=== PATIENT | male | born 1980 | race African-American/Black ===

== ENCOUNTER 2016-04-13 23:41 | Emergency (ER) | payer OTHER ==
[~2016-04-13] VITALS: Ht 170.2 cm; Wt 99.2 kg
[~2016-04-13 23:41] MED LIST: BACLOFEN20 MG PO; CELEBREX; CORTISONE INJECTION; CYMBALTA30 MG PO; ENDOCET 5-3251 EACH PO; FIORICET,ESG1 TABLET PO; FLEXERIL10 MG PO; GARAMYCIN5 M1 BOTH EYES; INDOCIN25 MG PO; MEDROL DOSEPAK4 MG PO; MOBIC15 MG PO; MOTRIN600 MG PO; MOTRIN800 MG PO; NAPROSYN500 MG PO; NAPROXEN500 MG PO; NEURONTIN300 MG PO; NEURONTIN600 MG PO; NEXIUM20 MG PO; PERCOCET 5/31 TABLET PO; PREDNISONE; ROBAXIN500 MG PO; SKELAXIN800 MG PO; TESSALON PERLE100 MG PO; TRAMADOL HCL50 MG PO; VALIUM; ZITHROMAX Z-PA250 MG PO
[2016-04-14] MEDS ORDERED: AUGMENTIN875 MG PO (00:04)
[2016-04-14] MEDS ORDERED: VALIUM5 MG PO (00:04)
[2016-04-14] MEDS ORDERED: PREDNISONE10 MG PO (00:04)
[2016-04-14 00:17] VITALS: BP 118/91
== END 2016-04-14 00:18 | disposition home or self-care (01) ==
LOC: EXP 23:41 → EME 23:41 → EXP 04-14 00:18
DX: S16.1XXA Strain of muscle, fascia and tendon at neck level, initial encounter (principal); M62.838 Other muscle spasm; X58.XXXA Exposure to other specified factors, initial encounter; M25.511 Pain in right shoulder; G89.29 Other chronic pain; Z79.891 Long term (current) use of opiate analgesic; F17.200 Nicotine dependence, unspecified, uncomplicated
CPT/HCPCS: 99281; 99284; J7512

== ENCOUNTER 2016-05-14 20:55 | Emergency (ER) | payer OTHER ==
[~2016-05-14] VITALS: Ht 170.2 cm; Wt 98.4 kg
[~2016-05-14 20:55] MED LIST changes: +AUGMENTIN875 MG PO; +PREDNISONE10 MG PO; +VALIUM5 MG PO
[2016-05-14] MEDS ORDERED: MOTRIN800 MG PO (21:53)
[2016-05-14] MEDS ORDERED: ULTRACET1 TABLET PO (21:53)
[2016-05-14 22:15] VITALS: BP 139/90
== END 2016-05-14 22:15 | disposition home or self-care (01) ==
LOC: EME 20:55
DX: S00.83XA Contusion of other part of head, initial encounter (principal); S70.02XA Contusion of left hip, initial encounter; V49.40XA Driver injured in collision with unspecified motor vehicles in traffic accident, initial encounter; Y92.410 Unspecified street and highway as the place of occurrence of the external cause; Z91.013 Allergy to seafood; F17.200 Nicotine dependence, unspecified, uncomplicated
CPT/HCPCS: 70150; 73502; 99281; 99283

== ENCOUNTER 2016-12-20 22:40 | Emergency (ER) | payer OTHER ==
[~2016-12-20 22:40] MED LIST changes: +ULTRACET1 TABLET PO
== END 2016-12-21 04:09 | disposition left against medical advice (07) ==
LOC: EME 22:40
DX: S05.92XA Unspecified injury of left eye and orbit, initial encounter (principal); V49.9XXA Car occupant (driver) (passenger) injured in unspecified traffic accident, initial encounter; Z53.21 Procedure and treatment not carried out due to patient leaving prior to being seen by health care provider

== ENCOUNTER 2017-03-13 22:27 | Emergency (ER) | payer OTHER ==
[~2017-03-13] VITALS: Ht 170.2 cm; Wt 98.5 kg
[2017-03-13 23:39] VITALS: BP 115/76
== END 2017-03-13 23:40 | disposition home or self-care (01) ==
LOC: EME 22:27 → RME 22:27
DX: S00.12XA Contusion of left eyelid and periocular area, initial encounter (principal); V49.9XXA Car occupant (driver) (passenger) injured in unspecified traffic accident, initial encounter; Z87.891 Personal history of nicotine dependence
CPT/HCPCS: 70150; 99281; 99284

== ENCOUNTER 2017-05-01 21:55 | Emergency (ER) | payer OTHER ==
[~2017-05-01] VITALS: Ht 172.7 cm; Wt 97.6 kg
[2017-05-01 22:36] LABS: HEMATOCRIT 40.8 % (38.0-50.0); HEMOGLOBIN 14.1 G/DL (12.5-16.6); MCH 29.3 PG (29.0-34.0); MCHC 34.6 G/DL (30.0-36.0); MCV 84.6 FL (86-99); PLATELET COUNT 326 K/uL (156-360); RBC DIS.WIDTH-CV 13.2 % (11.8-14.6); RBC DIS.WIDTH-SD 40.7 % (39-53); RED BLOOD COUNT 4.82 M/uL (4.00-5.50); WHITE BLOOD COUNT 8.6 K/uL (4.1-10.2)
[2017-05-01 22:45] LABS: CHLORIDE 106 mEq/L (99-109); POTASSIUM 3.6 mEq/L (3.7-5.4); SODIUM 138 mEq/L (136-147)
[2017-05-01 22:46] LABS: GLUCOSE 130 mg/dL (70-99)
[2017-05-01 22:50] LABS: CREATININE 1.2 mg/dL (0.6-1.3); GFR ESTIMATE (CALCULATED) > 59 mL/min/ (58.99-99999)
[2017-05-01 22:51] LABS: UREA NITROGEN (BUN) 10 mg/dL (9-23)
[2017-05-02] MEDS ORDERED: MAGNESIUM250 MG PO (00:36)
[2017-05-02] MEDS ORDERED: B-COMPLEX-VITA1 EACH PO (00:36)
[2017-05-02 00:45] VITALS: BP 120/72
== END 2017-05-02 00:46 | disposition home or self-care (01) ==
LOC: EXP 21:55 → EME 21:55 → EXP 05-02 00:46
DX: J98.01 Acute bronchospasm (principal); R55 Syncope and collapse; R00.2 Palpitations; R11.0 Nausea; Z87.891 Personal history of nicotine dependence
CPT/HCPCS: 71046; 80048; 85027; 93005; 94664; 99281; 99284; J7030

== ENCOUNTER 2017-07-14 17:23 | Emergency (ER) | payer OTHER ==
[~2017-07-14] VITALS: Ht 172.7 cm; Wt 95.0 kg
[~2017-07-14 17:23] MED LIST changes: +B-COMPLEX-VITA1 EACH PO; +MAGNESIUM250 MG PO
[2017-07-14 18:03] VITALS: BP 108/81
== END 2017-07-14 18:56 | disposition home or self-care (01) ==
LOC: EME 17:23
DX: S39.012A Strain of muscle, fascia and tendon of lower back, initial encounter (principal); S30.0XXA Contusion of lower back and pelvis, initial encounter; V43.52XA Car driver injured in collision with other type car in traffic accident, initial encounter; Y92.410 Unspecified street and highway as the place of occurrence of the external cause; I10 Essential (primary) hypertension; Z87.891 Personal history of nicotine dependence
CPT/HCPCS: 72100; 72220; 99281; 99284

== ENCOUNTER 2017-07-18 12:51 | Emergency (ER) | payer OTHER ==
[~2017-07-18] VITALS: Ht 172.7 cm; Wt 92.0 kg
[2017-07-18 14:17] LABS: HEMATOCRIT 42.5 % (38.0-50.0); HEMOGLOBIN 14.7 G/DL (12.5-16.6); MCH 29.6 PG (29.0-34.0); MCHC 34.6 G/DL (30.0-36.0); MCV 85.7 FL (86-99); PLATELET COUNT 339 K/uL (156-360); RBC DIS.WIDTH-CV 12.6 % (11.8-14.6); RBC DIS.WIDTH-SD 39.4 % (39-53); RED BLOOD COUNT 4.96 M/uL (4.00-5.50); WHITE BLOOD COUNT 6.9 K/uL (4.1-10.2)
[2017-07-18 14:27] LABS: ALBUMIN 4.3 g/dL (3.2-4.8); CHLORIDE 106 mEq/L (99-109); SODIUM 139 mEq/L (136-147)
[2017-07-18 14:29] LABS: GLUCOSE 83 mg/dL (70-99); TOTAL PROTEIN 6.9 g/dL (6.4-8.3)
[2017-07-18 14:31] LABS: TOTAL BILIRUBIN 0.5 mg/dL (0.0-1.0)
[2017-07-18 14:33] LABS: ALKALINE PHOSPHATASE 74 IU/L (3-129); CREATININE 0.9 mg/dL (0.6-1.3); GFR ESTIMATE (CALCULATED) > 59 mL/min/ (58.99-99999)
[2017-07-18 14:34] LABS: UREA NITROGEN (BUN) 8 mg/dL (9-23)
[2017-07-18 14:35] LABS: AST (GOT) 31 IU/L (2-34)
[2017-07-18 14:36] LABS: ALT (GPT) 64 IU/L (3-49)
[2017-07-18 14:56] LABS: APPEARANCE CLEAR ((CLEAR)); BILIRUBIN NEGATIVE; BLOOD NEGATIVE; COLOR YELLOW ((YELLOW)); GLUCOSE (STRIP) NEGATIVE; KETONES NEGATIVE; LEUKOCYTES NEGATIVE; NITRITE NEGATIVE; PROTEIN (STRIP) NEGATIVE; SPECIFIC GRAVITY 1.018 (1.000-1.030); UCUL ADDED? NO; UROBILINOGEN 0.2 MG/DL (0.2-1.0)
[2017-07-18 15:05] LABS: COCAINE NEGATIVE (150 ng/mL); PHENCYCLIDINE NEGATIVE (25 ng/mL); THC CANNABINOIDS PRESUMPTIVE POSITIVE (50 ng/mL)
[2017-07-18 15:06] LABS: AMPHETAMINE NEGATIVE (500 ng/mL); BARBITURATES NEGATIVE (200 ng/mL); BENZODIAZEPINES NEGATIVE (150 ng/mL); BUPRENORPHINE NEGATIVE (10 ng/mL); METHADONE NEGATIVE (200 ng/mL); METHAMPHETAMINE NEGATIVE (500 ng/mL); OPIATES (MORPHINE) NEGATIVE (100 ng/mL); OXYCODONE NEGATIVE (100 ng/mL); PROPOXYPHENE NEGATIVE (300 ng/mL); TRICYCLIC ANTIDEPRESSANTS NEGATIVE (300 ng/mL)
[2017-07-18 15:17] LABS: THYROTROPIN (TSH) 1.3 MIU/L (0.4-5.5)
[2017-07-18 15:43] VITALS: BP 112/89
== END 2017-07-18 16:08 | disposition home or self-care (01) ==
LOC: EME 12:51
PROVIDERS: Emergency Medicine
DX: R51 Headache (principal); M54.5 Low back pain; V49.40XA Driver injured in collision with unspecified motor vehicles in traffic accident, initial encounter; Y92.410 Unspecified street and highway as the place of occurrence of the external cause; Z87.891 Personal history of nicotine dependence
CPT/HCPCS: 70450; 80053; 81003; 84443; 84999; 85027; 99281; 99284

== ENCOUNTER 2017-09-20 00:23 | Emergency (ER) | payer OTHER ==
[~2017-09-20] VITALS: Ht 170.2 cm; Wt 95.0 kg
[2017-09-20 01:08] LABS: HEMATOCRIT 38.8 % (38.0-50.0); HEMOGLOBIN 13.2 G/DL (12.5-16.6); MCH 29.1 PG (29.0-34.0); MCV 85.7 FL (86-99); PLATELET COUNT 313 K/uL (156-360); RBC DIS.WIDTH-CV 13.1 % (11.8-14.6); RBC DIS.WIDTH-SD 40.9 % (39-53); RED BLOOD COUNT 4.53 M/uL (4.00-5.50); WHITE BLOOD COUNT 9.5 K/uL (4.1-10.2)
[2017-09-20 01:24] LABS: CHLORIDE 107 mEq/L (99-109); POTASSIUM 3.7 mEq/L (3.7-5.4); SODIUM 142 mEq/L (136-147)
[2017-09-20 01:26] LABS: GLUCOSE 139 mg/dL (70-99)
[2017-09-20 01:30] LABS: GFR ESTIMATE (CALCULATED) > 59 mL/min/ (58.99-99999)
[2017-09-20 01:31] LABS: UREA NITROGEN (BUN) 12 mg/dL (9-23)
[2017-09-20 01:36] LABS: APPEARANCE CLEAR ((CLEAR)); BILIRUBIN NEGATIVE; BLOOD MODERATE; COLOR YELLOW ((YELLOW)); GLUCOSE (STRIP) NEGATIVE; KETONES NEGATIVE; LEUKOCYTES NEGATIVE; NITRITE NEGATIVE; PROTEIN (STRIP) 30; SPECIFIC GRAVITY 1.019 (1.000-1.030)
[2017-09-20 01:40] LABS: BACTERIA NONE SEEN /HPF; EPITHELIAL CELLS RARE /HPF; MUCUS TRACE /LPF; UCUL ADDED? NO; WHITE BLOOD CELLS 0-5 /HPF (0-5)
[2017-09-20 01:46] LABS: AMPHETAMINE NEGATIVE (500 ng/mL); BARBITURATES NEGATIVE (200 ng/mL); BENZODIAZEPINES NEGATIVE (150 ng/mL); BUPRENORPHINE NEGATIVE (10 ng/mL); COCAINE NEGATIVE (150 ng/mL); METHADONE NEGATIVE (200 ng/mL); METHAMPHETAMINE NEGATIVE (500 ng/mL); OPIATES (MORPHINE) NEGATIVE (100 ng/mL); OXYCODONE NEGATIVE (100 ng/mL); PHENCYCLIDINE NEGATIVE (25 ng/mL); PROPOXYPHENE NEGATIVE (300 ng/mL); THC CANNABINOIDS PRESUMPTIVE POSITIVE (50 ng/mL); TRICYCLIC ANTIDEPRESSANTS NEGATIVE (300 ng/mL)
[2017-09-20] MEDS ORDERED: PYRIDIUM100 MG PO (01:57)
[2017-09-20] MEDS ORDERED: LEVAQUIN750 MG PO (01:57)
[2017-09-20 02:08] VITALS: BP 123/86
[2017-09-20 03:27] LABS: ERTH.SED.RATE 4 MM/HR (0-15)
== END 2017-09-20 02:09 | disposition home or self-care (01) ==
LOC: EME 00:23
PROVIDERS: Emergency Medicine
DX: R31.9 Hematuria, unspecified (principal); M54.2 Cervicalgia; M54.5 Low back pain; G89.29 Other chronic pain; Z87.891 Personal history of nicotine dependence
CPT/HCPCS: 80048; 81003; 84999; 85027; 85651; 99281; 99284